=== PATIENT | female | born 1960 | race Caucasian/White ===

== ENCOUNTER 2016-05-14 12:49 | Emergency (ER) | payer MEDICARE, SELFPAY ==
[2016-05-14 13:27] LABS: Bilirubin Negative (Negative); Blood, Urine Negative (Negative); Clarity Clear (Clear); Glucose, Urine (Dipstick) 100 mg/dL (Negative); Leukocyte Negative (Negative); Nitrite Negative (Negative); Protein, Urine (Dipstick) 30 mg/dL (Neg-Trace); pH, Urine 6.5 (5.0-9.0)
[2016-05-14 13:28] LABS: Specific Gravity, Urine 1.026 (1.002-1.036)
[2016-05-14 13:32] LABS: Bacteria/HPF Rare-Few HPF (None Seen); RBC/HPF None Seen HPF (0-3); WBC/HPF None Seen HPF (0-3); Yeast-All Forms Rare HPF (None Seen)
--- NOTE | 2016-05-14 14:16 | CT ---
CT ABDOMEN AND PELVIS WITHOUT IV CONTRAST: Date: 05-14-16 History: Back pain with nausea and vomiting. Bilateral flank pain. Comparison: CT abdomen/pelvis 07-19-14 FINDINGS: Post-surgical change related to cholecystectomy are again noted. There is decreased attenuation to the liver relative to the spleen suggesting diffuse fatty infiltration. There is linear atelectasis versus scarring at the left lung base. Lung bases are otherwise clear. The spleen, pancreas, bilateral adrenal glands, and kidneys demonstrate a grossly normal nonenhanced CT appearance. No renal or ureteral calculi are seen bilaterally and there is no evidence of hydronephrosis. Urina ry bladder is decompressed and not well evaluated. Vascular calcifications are again seen in the abdominal aorta and iliac arteries. There is suture m aterial adjacent to the cecal apex, probably related to prior appendectomy and also noted on the sammy or exam. Also again is evidence of prior hysterectomy. There is increased density material within the colon likely related to prior ingested material. There has been no interval change when compared to the prior exam. IMPRESSION: 1. No renal or ureteral calculi are seen bilaterally. There is no hydronephrosis. 2. Fatty infiltration of the liver. 3. Post-surgical changes related to cholecystectomy and hysterectomy. 4. Mild stranding in the subcutaneous soft tissues to the right and left of the umbilicus which may be related to recent injections. POS: PEE
[2016-05-14] MEDS ORDERED: HYDROcodone/Acetaminophen 10/325 mg Tablet ONE (14:34)
[2016-05-14] MEDS ORDERED: Cyclobenzaprine 10 MG TAB ONE (14:34)
--- NOTE | 2016-05-14 14:54 | ERRECORD ---
[facility] EMERGENCY RECORD HPI BACK (13:39 ABUS) CHIEF COMPLAINT: Patient presents for evaluation of pain, to the mid back. HISTORIAN: History provided by patient, 55 yr old F here with boaz CVA tenderness with some radiation down to the lateral aspects of the abdomen. Fever of 101 at home. No N/V. Never happened before. Denies dysuria or hx of renal stones. MECHANISM OF INJURY: No apparent mechanism of injury. LOCATION: Symptoms are localized to the back, left lumbar region, right lumbar region. QUALITY: Pain is dull in nature, described as aching. SEVERITY: Currently symptoms are moderate, Current severity of pain rated as 8/10. TIME COURSE: Gradual onset of symptoms, 2 days, First recent visit for this complaint, Symptoms are worsening. ASSOCIATED WITH: No associated abdominal pain, No associated bladder incontinence, No associated dysuria, Associated with fever, No associated inability to ambulate, No associated sciatica, No associated tingling. EXACERBATED BY: Patient's condition exacerbated by movement. RELIEVED BY: Patient's condition relieved by nothing. ROS (13:42 ABUS) CONSTITUTIONAL: Historian denies chills, reports fever. CARDIOVASCULAR: Negative cardiovascular review of systems, Historian denies chest pain, denies palpitations. RESPIRATORY: Negative respiratory review of systems, Historian denies cough, denies shortness of breath. GI: Negative gastrointestinal review of systems, Historian denies abdominal pain, denies constipation, denies diarrhea, denies nausea, denies vomiting. GENITOURINARY FEMALE: Negative genitourinary review of systems, Historian denies dysuria, denies frequency. MUSCULOSKELETAL: boaz CVA pain. SKIN: Negative skin review of systems, Historian denies rash, denies skin changes. NEUROLOGIC: Negative neurologic review of systems, Historian denies headache. HEMO/LYMPHATIC: Normal hematologic/lymphatic system review, Historian denies abnormal blood clotting. PAST MEDICAL HISTORY (FriMay 14, 2016 13:10 MDEB) MEDICAL HISTORY: Past medical history includes history of diabetes, Type II, on insulin, levimere, Past medical history includes gastrointestinal disease, coloits and ibs, Past medical history includes history of hypertension, which has been treated, lisinopril, Notes: hx: ibs and colitis, not on any medications. psoriasis, Past medical history includes history of hypertension. FEMALE SURGICAL HISTORY: left and right foot surgery, &a-1R&a+25V*p+0X*[id number]*c202B*c15G*c2P*p-0X&a-25V&a+1R Name: UlicesJaquelin : 1960 F55 MedRec: [id number] AcctNum: [id number] Prepared: Rvier May 14, 2016 14:54 by Interface Page 1 of 4 pMD [facility] EMERGENCY RECORD x1, desmoid tumor left lower quadrant removed x2, Surgical history of appendectomy, Surgical history of cholecystectomy, Surgical history of hysterectomy., colonoscopy verified 09-14-14. PSYCHIATRIC HISTORY: Psychiatric history includes, bipolar disorder, Previous psychiatric history: seroquel,wellbutron, Notes: bipolar. SOCIAL HISTORY: Patient denies alcohol use, Patient denies drug use, Patient currently uses tobacco, smokes cigarettes, daily, Patient has smoked for 30 years, Patient smokes 1/2 packs per day, has smoked for 45 years, Patient currently uses tobacco, Patient smokes cigarettes. KNOWN ALLERGIES erythromycin base (Unconfirmed) erythromycin Oral: Reaction: Hives lithium aspartate (Unconfirmed) lithium carbonate metFORMIN: Reaction: Hives CURRENT MEDICATIONS No recorded medications VITAL SIGNS (13:07 MDEB) VITAL SIGNS: BP: 143/79, Pulse: 78, Resp: 20, Temp: 98.3 (Tympanic), Pain: 8, O2 sat: 96 on Room Air, Time: 05/14/2016 13:07. PHYSICAL EXAM (13:42 ABUS) CONSTITUTIONAL: Vital Signs Reviewed, Patient afebrile, Pulse normal, Blood pressure normal, Respiratory rate normal, Patient appears non toxic, Patient appears, in moderate pain distress, Patient alert and oriented to person, place and time. NECK: Neck exam normal, Neck exam included findings of normal range of motion, Trachea midline, no meningeal signs, no cervical adenopathy, no tenderness. RESPIRATORY CHEST: Respiratory and chest exam normal, Respiratory exam included findings of no respiratory distress, Breath sounds clear. CARDIOVASCULAR: Cardiovascular assessment normal, Cardiovascular exam included findings of heart rate regular rate and rhythm, Heart sounds normal. ABDOMEN FEMALE: Abdominal exam included findings of abdomen nontender, Bowel sounds normal, no distension, no mass, no pulsatile masses, no peritoneal signs, no rigidity, no guarding, no rebound, Rovsing's sign absent. BACK: Costovertebral angle tenderness, bilaterally, Back exam normal, Back exam included findings of normal inspection, range of motion normal. NEURO: Neuro exam normal, Neuro exam findings include patient oriented to person, place and time, Speech normal, Gait normal. SKIN: Skin exam normal, Skin exam included findings of skin warm, &a-1R&a+25V*p+0X*[id number]*c202B*c15G*c2P*p-0X&a-25V&a+1R Name: UlicesJaquelin : 1960 F55 MedRec: [id number] AcctNum: [id number] Prepared: kvng May 14, 2016 14:54 by Interface Page 2 of 4 pMD [facility] EMERGENCY RECORD dry, and normal in color, no rash. MEDICATION ADMINISTRATION SUMMARY Drug Name: HYDROcodone-acetaminophen, Dose Ordered: 10/325 tab(s), Route: Oral, Status: Given, Time: 14:39 05/14/2016, Drug Name: Flexeril, Dose Ordered: 10 mg, Route: Oral, Status: Given, Time: 14:38 05/14/2016, Detailed record available in Medication Service section. DOCTOR NOTES (13:43 ABUS) TEXT: 55 yr old F here with boaz CVA tenderness with some radiation down to the lateral aspects of the abdomen. Fever of 101 at home. No N/V. DDX: Cystitis, Urinary Tract Infection, Pyleonephritis, Nephrolithiasis, Urethritis, Dermatitis, Allergic Reaction PLAN: UA, Analgesics, CT Renal Stone Protocol DISPO: Pending results and response to treatment UPDATE/REASSESSMENT: Negative CT Renal stone, UA nonspecific Final Dispo: Discharge Home with regular follow up and return precautions. All results of testing and evaluation were shared with the patient who verbalized understanding and agreement with the plan of care. Level of Complexity / Medical Decision Making: Low Moderate High. PROBLEM LIST No recorded problems DIAGNOSIS (14:28 ABUS) FINAL: PRIMARY: Back Pain. PRESCRIPTION (14:27 ABUS) Flexeril: TABLET : 5 mg : ORAL : Quantity: 1 Unit: tab(s) Route: ORAL Schedule: every 8 hours PRN Dispense: 6 Unit: tab(s) May substitute. Refills: No Refills . NOTES: No Refills. acetaminophen-codeine: TABLET : 300 mg-30 mg : ORAL : Quantity: 1 Unit: tab(s) Route: ORAL Schedule: every 6 hours PRN Dispense: 8 Unit: tab(s) May substitute. Refills: No Refills . NOTES: ^s=No Refills No Refills. DISPOSITION PATIENT: Disposition Type: Discharge, Disposition: *Discharge Home, Condition: Good. (14:28 ABUS) Patient left the department. (14:48 MDEB) Davis: &a-1R&a+25V*p+0X*[id number]*c202B*c15G*c2P*p-0X&a-25V&a+1R Name: Jaquelin Elena : 1960 F55 MedRec: [id number] AcctNum: [id number] Prepared: River May 14, 2016 14:54 by Interface Page 3 of 4 pMD [facility] EMERGENCY RECORD ABUS=MD Mario, Odilon MCKEONEB=ZACH Waldrop, Amalia &a-1R&a+25V*p+0X*[id number]*c202B*c15G*c2P*p-0X&a-25V&a+1R Name: Jaquelin Elena : 1960 F55 MedRec: [id number] AcctNum: [id number] Prepared: River May 14, 2016 14:54 by Interface Page 4 of 4 pMD MTDD
--- NOTE | 2016-05-14 14:59 | PICIS ---
[facility] EMERGENCY RECORD TRIAGE (FriMay 14, 2016 13:10 MDEB) PATIENT: NAME: UlicesJaquelin, AGE: 55, GENDER: female, : Fri1960, TIME OF GREET: FriMay 14, 2016 12:49, PREFERRED LANGUAGE: Slovenian, RACE: WHITE, ETHNICITY: Not or , FALL RISK: NO, ECODE BILLING MAP: [facility], SSN: [id number], Zip Code: [address], KG WEIGHT: 84.82, PHONE: , , , PERSON ID: [id number], PCP: Chip BARTON. (FriMay 14, 2016 13:10 MDEB) TRIAGE NOTES: N/V SINCE FRIDAY - UNABLE TO KEEP ANYTHING DOWN - IDDM. (FriMay 14, 2016 13:10 MDEB) COMPLAINT: BACK PAIN,VOMITING. (FriMay 14, 2016 13:10 MDEB) ADMISSION: URGENCY: 3 Urgent, ADMISSION SOURCE: Home, TRANSPORT: Walk-in, BED: TRIAGE. (FriMay 14, 2016 13:10 MDEB) PAIN: Patient complains of pain described as, aching, on a scale 0-10 patient rates pain as 8, Location NIRU FLANK PAIN. (FriMay 14, 2016 13:10 MDEB) IMMUNIZATIONS: Tetanus immunization up to date. (FriMay 14, 2016 13:10 MDEB) TRIAGE SCREENING: Patient denies suicidal ideation, Patient denies presence of domestic violence. (FriMay 14, 2016 13:10 MDEB) LMP: LMP: Hysterectomy. (FriMay 14, 2016 13:10 MDEB) PROVIDERS: TRIAGE NURSE: Amalia Waldrop RN. (FriMay 14, 2016 13:10 MDEB) VITAL SIGNS: BP 143/79, Pulse 78, Resp 20, Temp 98.3, (Tympanic), Pain 8, O2 Sat 96, on Room Air, Time 05/14/2016 13:07. (13:07 MDEB) PREVIOUS VISIT ALLERGIES: erythromycin base, lithium aspartate, metformin. (FriMay 14, 2016 13:10 MDEB) KNOWN ALLERGIES erythromycin base (Unconfirmed) erythromycin Oral: Reaction: Hives lithium aspartate (Unconfirmed) lithium carbonate metFORMIN: Reaction: Hives CURRENT MEDICATIONS No recorded medications VITAL SIGNS (13:07 MDEB) VITAL SIGNS: BP: 143/79, Pulse: 78, Resp: 20, Temp: 98.3 (Tympanic), Pain: 8, O2 sat: 96 on Room Air, Time: 05/14/2016 13:07. NURSING ASSESSMENT: ABDOMEN (13:10 MDEB) CONSTITUTIONAL: Patient arrives ambulatory, Gait steady, History obtained from patient, Patient appears, anxious, uncomfortable, Patient cooperative, Patient alert, Oriented to person, place and time, Skin warm, Skin dry, Skin normal in color, Mucous membranes pink, Mucous membranes moist, Patient is well-groomed, Patient complains of N/V, IDDM PT REPORTS N/V SINCE . &a-1R&a+25V*p+0X*q6938S*c202B*c15G*c2P*p-0X&a-25V&a+1R Name: Jaquelin Elena : 1960 F55 MedRec: [id number] AcctNum: [id number] Prepared: River May 14, 2016 15:00 by Interface Page 1 of 7 pMD [facility] EMERGENCY RECORD PAIN: aching pain, to the left flank, to the right flank, on a scale 0-10 patient rates pain as 8, Pain exacerbated by nothing, Nothing has been tried to alleviate the pain. ABDOMEN: Abdomen assessment findings include abdomen symmetrical, Abdomen soft, Associated with nausea, Associated with vomiting, history of vomiting, vomiting clear fluid. GENITOURINARY FEMALE: Notes: DEFERRED AT THIS TIME. NOTES: Emotional support needed and given, Patient tolerated procedure well. SAFETY: Side rails up, Cart/Stretcher in lowest position, Family at bedside, Call light within reach, Hospital ID band on. NURSING PROCEDURE: BEDSIDE TESTING (13:15 MDEB) PATIENT IDENTIFIER: Patient actively involved in identification process, Patient's identity verified by patient stating name, Patient's identity verified by hospital ID bracelet. GLUCOSE: Glucose testing indicated for diabetic patient, Capillary blood sample, Result (mg/dl) 172. FOLLOW-UP: After procedure, results given to Dr. CHRISTIANSEN. SAFETY: Cart/Stretcher in lowest position, Call light within reach, Hospital ID band on. NURSING PROCEDURE: DISCHARGE NOTE (14:42 MAGALIE) DISCHARGE: Patient discharged to home, ambulating without assistance, family driving, accompanied by other family member, Summary of Care printed/ provided, Patient requested and was provided an electronic copy of Discharge Instructions, Transition record given to patient, Discharge instructions given to patient, Simple or moderate discharge teaching performed, MEDICATIONS, DIET, Prescriptions given and instructions on side effects given, Above person(s) verbalized understanding of discharge instructions and follow-up care, Patient treated and evaluated by physician. BELONGINGS: Belongings remain with patient, Valuables remain with patient. NOTES: Emotional support needed and given, Patient tolerated procedure well. ORDER DETAILS Order Name: CT Stone Protocol, Status: Active, Time: 13:28 05/14/2016, User: MARTÍN, - Ordered for: MD Christiansen Anthony, - Entered by: MD Christiansen Anthony - River May 14, 2016 13:28, - Quantity: 1, Order Name: Urinalysis with Microscopic, Status: Active, Time: 13:18 05/14/2016, User: MAGALIE, - Ordered for: MD Christiansen Anthony, - Entered by: ZACH Waldrop, Amalia - River May 14, 2016 13:18, &a-1R&a+25V*p+0X*b7759L*c202B*c15G*c2P*p-0X&a-25V&a+1R Name: Jaquelin Elena : 1960 F55 MedRec: [id number] AcctNum: [id number] Prepared: FriMay 14, 2016 15:00 by Interface Page 2 of 7 pMD [facility] EMERGENCY RECORD - Quantity: 1. MEDICATION ADMINISTRATION SUMMARY Drug Name: HYDROcodone-acetaminophen, Dose Ordered: 10/325 tab(s), Route: Oral, Status: Given, Time: 14:39 05/14/2016, Drug Name: Flexeril, Dose Ordered: 10 mg, Route: Oral, Status: Given, Time: 14:38 05/14/2016, Detailed record available in Medication Service section. MEDICATION SERVICE Flexeril: Order: Flexeril (cyclobenzaprine HCl) - Dose: 10 mg : Oral Schedule: Now Ordered by: Odilon Christiansen MD Entered by: MD River Marquez May 14, 2016 14:26 , Acknowledged by: Sagrario Manning RN May 14, 2016 14:34 Documented as given by: Sagrario Manning RN May 14, 2016 14:38 Patient, Medication, Dose, Route and Time verified prior to administration. Amount given: 10MG, Site: Medication administered P.O., Correct patient, time, route, dose and medication confirmed prior to administration, Patient advised of actions and side-effects prior to administration, Allergies confirmed and medications reviewed prior to administration, Patient in position of comfort, Side rails up, Cart in lowest position, Family at bedside. HYDROcodone-acetaminophen: Order: HYDROcodone-acetaminophen (hydrocodone bitartrate/acetaminophen) - Dose: 10/325 tab(s) : Oral Ordered by: Odilon Christiansen MD Entered by: Odilon Christiansen MD FriMay 14, 2016 14:26 , Acknowledged by: Sagrario Manning RN May 14, 2016 14:34 Documented as given by: Sagrario Manning RN May 14, 2016 14:39 Patient, Medication, Dose, Route and Time verified prior to administration. Amount given: 1 TAB, Site: Medication administered P.O., Correct patient, time, route, dose and medication confirmed prior to administration, Patient advised of actions and side-effects prior to administration, Allergies confirmed and medications reviewed prior to administration, Patient in position of comfort, Side rails up, Cart in lowest position, Family at bedside. HPI BACK (13:39 ABUS) CHIEF COMPLAINT: Patient presents for evaluation of pain, to the mid back. HISTORIAN: History provided by patient, 55 yr old F here with niru CVA tenderness with some radiation down to the lateral aspects of the abdomen. Fever of 101 at home. No N/V. Never happened before. Denies dysuria or hx of renal stones. MECHANISM OF INJURY: No apparent mechanism of injury. LOCATION: Symptoms are &a-1R&a+25V*p+0X*z9284T*c202B*c15G*c2P*p-0X&a-25V&a+1R Name: Jaquelin Elena : 1960 F55 MedRec: [id number] AcctNum: [id number] Prepared: FriMay 14, 2016 15:00 by Interface Page 3 of 7 pMD [facility] EMERGENCY RECORD localized to the back, left lumbar region, right lumbar region. QUALITY: Pain is dull in nature, described as aching. SEVERITY: Currently symptoms are moderate, Current severity of pain rated as 8/10. TIME COURSE: Gradual onset of symptoms, 2 days, First recent visit for this complaint, Symptoms are worsening. ASSOCIATED WITH: No associated abdominal pain, No associated bladder incontinence, No associated dysuria, Associated with fever, No associated inability to ambulate, No associated sciatica, No associated tingling. EXACERBATED BY: Patient's condition exacerbated by movement. RELIEVED BY: Patient's condition relieved by nothing. ROS (13:42 ABUS) CONSTITUTIONAL: Historian denies chills, reports fever. CARDIOVASCULAR: Negative cardiovascular review of systems, Historian denies chest pain, denies palpitations. RESPIRATORY: Negative respiratory review of systems, Historian denies cough, denies shortness of breath. GI: Negative gastrointestinal review of systems, Historian denies abdominal pain, denies constipation, denies diarrhea, denies nausea, denies vomiting. GENITOURINARY FEMALE: Negative genitourinary review of systems, Historian denies dysuria, denies frequency. MUSCULOSKELETAL: niru CVA pain. SKIN: Negative skin review of systems, Historian denies rash, denies skin changes. NEUROLOGIC: Negative neurologic review of systems, Historian denies headache. HEMO/LYMPHATIC: Normal hematologic/lymphatic system review, Historian denies abnormal blood clotting. PAST MEDICAL HISTORY (FriMay 14, 2016 13:10 MDEB) MEDICAL HISTORY: Past medical history includes history of diabetes, Type II, on insulin, levimere, Past medical history includes gastrointestinal disease, coloits and ibs, Past medical history includes history of hypertension, which has been treated, lisinopril, Notes: hx: ibs and colitis, not on any medications. psoriasis, Past medical history includes history of hypertension. FEMALE SURGICAL HISTORY: left and right foot surgery, x1, desmoid tumor left lower quadrant removed x2, Surgical history of appendectomy, Surgical history of cholecystectomy, Surgical history of hysterectomy., colonoscopy verified 5--15. PSYCHIATRIC HISTORY: Psychiatric history includes, bipolar disorder, Previous psychiatric history: seroquel,wellbutron, Notes: bipolar. SOCIAL HISTORY: Patient denies alcohol use, Patient denies drug use, Patient currently uses tobacco, smokes cigarettes, daily, &a-1R&a+25V*p+0X*c8613Y*c202B*c15G*c2P*p-0X&a-25V&a+1R Name: Ulices, Kelly : 1960 F55 MedRec: [id number] AcctNum: [id number] Prepared: FriMay 14, 2016 15:00 by Interface Page 4 of 7 pMD [facility] EMERGENCY RECORD Patient has smoked for 30 years, Patient smokes 1/2 packs per day, has smoked for 45 years, Patient currently uses tobacco, Patient smokes cigarettes. PHYSICAL EXAM (13:42 ABUS) CONSTITUTIONAL: Vital Signs Reviewed, Patient afebrile, Pulse normal, Blood pressure normal, Respiratory rate normal, Patient appears non toxic, Patient appears, in moderate pain distress, Patient alert and oriented to person, place and time. NECK: Neck exam normal, Neck exam included findings of normal range of motion, Trachea midline, no meningeal signs, no cervical adenopathy, no tenderness. RESPIRATORY CHEST: Respiratory and chest exam normal, Respiratory exam included findings of no respiratory distress, Breath sounds clear. CARDIOVASCULAR: Cardiovascular assessment normal, Cardiovascular exam included findings of heart rate regular rate and rhythm, Heart sounds normal. ABDOMEN FEMALE: Abdominal exam included findings of abdomen nontender, Bowel sounds normal, no distension, no mass, no pulsatile masses, no peritoneal signs, no rigidity, no guarding, no rebound, Rovsing's sign absent. BACK: Costovertebral angle tenderness, bilaterally, Back exam normal, Back exam included findings of normal inspection, range of motion normal. NEURO: Neuro exam normal, Neuro exam findings include patient oriented to person, place and time, Speech normal, Gait normal. SKIN: Skin exam normal, Skin exam included findings of skin warm, dry, and normal in color, no rash. EVENTS TRANSFER: Triage to Emergency Triage. (FriMay 14, 2016 13:10 MDEB) Emergency Triage to Main ED -03. (13:18 MDEB) Removed from Emergency Main ED -03. (14:48 MDEB) DOCTOR NOTES (13:43 ABUS) TEXT: 55 yr old F here with niru CVA tenderness with some radiation down to the lateral aspects of the abdomen. Fever of 101 at home. No N/V. DDX: Cystitis, Urinary Tract Infection, Pyleonephritis, Nephrolithiasis, Urethritis, Dermatitis, Allergic Reaction PLAN: UA, Analgesics, CT Renal Stone Protocol DISPO: Pending results and response to treatment UPDATE/REASSESSMENT: Negative CT Renal stone, UA nonspecific Final Dispo: Discharge Home with regular follow up and return precautions. All results of testing and evaluation were shared with the patient who verbalized understanding and agreement with the plan of care. Level of Complexity / Medical Decision Making: Low Moderate &a-1R&a+25V*p+0X*p2537Z*c202B*c15G*c2P*p-0X&a-25V&a+1R Name: UlicesJaquelin : 1960 F55 MedRec: [id number] AcctNum: [id number] Prepared: FriMay 14, 2016 15:00 by Interface Page 5 of 7 pMD [facility] EMERGENCY RECORD High. PROBLEM LIST No recorded problems DIAGNOSIS (14:28 ABUS) FINAL: PRIMARY: Back Pain. DISPOSITION PATIENT: Disposition Type: Discharge, Disposition: *Discharge Home, Condition: Good. (14:28 ABUS) Patient left the department. (14:48 MDEB) INSTRUCTION (14:29 ABUS) DISCHARGE: LOW BACK PAIN GENERAL. FOLLOWUP: [facility], /[facility], [address] [place] [address], , Follow up with Primary Care Physician in 3-4 days. SPECIAL: Please keep any upcoming appointments with your primary doctor or call the referral provided to you today to establish a follow up evaluation or ongoing medical care. Please come back if you start to have fever, vomiting, changes in bowel or bladder function or any symptoms that concern you. PRESCRIPTION (14:27 ABUS) Flexeril: TABLET : 5 mg : ORAL : Quantity: 1 Unit: tab(s) Route: ORAL Schedule: every 8 hours PRN Dispense: 6 Unit: tab(s) May substitute. Refills: No Refills . NOTES: No Refills. acetaminophen-codeine: TABLET : 300 mg-30 mg : ORAL : Quantity: 1 Unit: tab(s) Route: ORAL Schedule: every 6 hours PRN Dispense: 8 Unit: tab(s) May substitute. Refills: No Refills . NOTES: ^s=No Refills No Refills. IMAGING *DISCHARGE INSTRUCTIONS RECEIPT: Image captured from scanner. (14:45 MDEB) *SUPPLY CHARGE SHEET: Image captured from scanner. (14:46 MDEB) ADMIN (14:40 ABUS) DIGITAL SIGNATURE: MD Mario, Odilon. RESULTS (13:45 MDEB) LABORATORY: Urinalysis with Microscopic Collection DT: FriMay 14, 2016 13:25, Color Yellow , Range (Yellow), Clarity Clear , Range (Clear), &a-1R&a+25V*p+0X*k3571L*c202B*c15G*c2P*p-0X&a-25V&a+1R Name: UlicesJaquelin : 1960 F55 MedRec: [id number] AcctNum: [id number] Prepared: FriMay 14, 2016 15:00 by Interface Page 6 of 7 pMD [facility] EMERGENCY RECORD Specific [place], Urine 1.026 , Range (1.002-1.036), pH, Urine 6.5 , Range (5.0-9.0), Leukocyte Negative , Range (Negative), Nitrite Negative , Range (Negative), *Protein, Urine (Dipstick) 30 - H mg/dL, Range (Neg-Trace), *Glucose, Urine (Dipstick) 100 - H mg/dL, Range (Negative), Ketone, Urine Negative mg/dL, Range (Negative), Urobilinogen 1.0 mg/dL, Range (0.2-1.0), Bilirubin Negative , Range (Negative), Blood, Urine Negative , Range (Negative), RBC/HPF None Seen HPF, Range (0-3), WBC/HPF None Seen HPF, Range (0-3), *Squamous Epithelial 11-20 - H HPF, Range (0-3), Bacteria/HPF Rare-Few HPF, Range (None Seen), Yeast-All Forms Rare HPF, Range (None Seen). Accuchek Collection DT: FriMay 14, 2016 13:22, *Accuchek 172 - H mg/dL, Range (70-110). Davis: MARTÍN=MD Mario, Odilon MCKEONEB=ZACH Waldrop, Amalia &a-1R&a+25V*p+0X*h1635D*c202B*c15G*c2P*p-0X&a-25V&a+1R Name: Jaquelin Elena : 1960 F55 MedRec: [id number] AcctNum: [id number] Prepared: River May 14, 2016 15:00 by Interface Page 7 of 7 pMD MTDD
== END 2016-05-14 14:42 | disposition home or self-care (01) ==
LOC: MADERS 12:49
DX: M54.6 Pain in thoracic spine (principal); I10 Essential (primary) hypertension; E11.9 Type 2 diabetes mellitus without complications; F31.9 Bipolar disorder, unspecified; F17.210 Nicotine dependence, cigarettes, uncomplicated; Z90.49 Acquired absence of other specified parts of digestive tract; Z90.710 Acquired absence of both cervix and uterus
CPT/HCPCS: 36416; 74176; 81001

== ENCOUNTER 2017-01-01 11:13 | Emergency (ER) | payer MEDICARE, SELFPAY ==
[~2017-01-01 11:13] MED LIST: Iopamidol 370 76% 100 ML VIAL ONE; Sodium Chloride 0.9% 1,000 ML BAG ONE
[2017-01-01] MEDS ORDERED: Ondansetron HCl/PF 4 MG/2 ML Vial ONE (11:59)
[2017-01-01 12:04] LABS: #Basophils 0.1 thou/uL (0.0-0.2); #Eosinphils 0.1 thou/uL (0.0-0.7); #Lymphocytes 2.1 thou/uL (1.20-3.40); #Monocytes 0.4 thou/uL (0.11-0.59); #Neutrophils 4.6 thou/uL (1.40-6.50); %Basophils 1.5 % (0.0-1.0); %Eosinophils 1.2 % (0.0-10.0); %Neutrophils 63.3 % (42.0-75.0); Hemoglobin 15.4 g/dL (12.0-16.0); Mean Corpuscular HGB CONC 32.6 g/dL (32.0-36.0); Mean Corpuscular Hemoglobin 28.7 pg (27.0-31.0); Mean Corpuscular Volume 88.1 fl (81.0-99.0); Mean Platelet Volume 6.6 fL (7.4-10.4); Platelet Count 222 thou/uL (130-400); RBC Distribution Width 12.8 % (11.5-14.5); Red Blood Cell (RBC) Count 5.36 mill/uL (4.20-5.40); White Blood Cell (WBC) Count 7.3 thou/uL (4.8-10.8)
[2017-01-01 12:13] LABS: Bacteria/HPF 1+ HPF (None Seen); Bilirubin Negative (Negative); Blood, Urine Negative (Negative); Clarity Slightly Cloudy (Clear); Glucose, Urine (Dipstick) Negative (Negative); Icto Negative (Negative); Leukocyte Negative (Negative); Nitrite Negative (Negative); Protein, Urine (Dipstick) 30 mg/dL (Neg-Trace); RBC/HPF 0-3 HPF (0-3); Specific Gravity, Urine 1.025 (1.005-1.030); Urobilinogen 0.2 mg/dL (0.2-1.0); WBC/HPF 0-3 HPF (0-3); pH, Urine 5.5 (5.0-9.0)
[2017-01-01 12:14] LABS: Yeast-All Forms 2+ HPF (None Seen)
[2017-01-01 12:19] LABS: ALT (SGPT) 42 U/L (8-55); AST (SGOT) 53 U/L (5-34); Albumin 4.8 g/dL (3.5-5.0); Alkaline Phosphatase 109 U/L (40-150); Anion Gap 18 mmol/L (10-20); BUN (Urea Nitrogen) 16 mg/dL (9.8-20.1); Bilirubin, Total 0.5 mg/dL (0.2-1.2); Calc. Creatinine Clearance 0 mL/min (70-130); Calcium 10.4 mg/dL (7.8-10.44); Carbon Dioxide 25 mmol/L (22-29); Chloride 100 mmol/L (98-107); Estimated GFR-MDRD 60; Globulin 3.2 g/dL (2.4-3.5); Glucose 165 mg/dL (70-105); Lipase 12 U/L (8-78); Potassium 3.9 mmol/L (3.5-5.1); Sodium 139 mmol/L (136-145)
--- NOTE | 2017-01-01 13:20 | CT ---
CONTRAST ENHANCED ABDOMEN AND PELVIS CT: Date: 01/01/17 COMPARISON: 10/19/13. INDICATION: Abdominal pain. FINDINGS: Evidence of prior cholecystectomy. Low attenuation of the hepatic parenchyma may be on the basis of phase of enhancement versus hepatic steatosis. No adrenal mass. No peripancreatic inflammation or fo tali splenic lesion. Redemonstration of multifocal altered density of each kidney, many of which are too small to further characterize. There has been progression of volume of a mixed density cystic an d solid appearing lesion at the lateral confines of the superior pole left kidney, partially exophyt ic. The bowel is not reliably evaluated without enteric contrast. There are phleboliths and metallic clips of the pelvis. Scattered vascular disease is present. No free air. No evidence of acute osseo us abnormality. Stable bone island at the posterior aspect of the left ischium. IMPRESSION: 1. Size progression of a cystic and solid appearing mass of the lateral aspect of the superior pole of the left kidney, incompletely evaluated on the basis of this single phase postcontrast exam. Rec ommend dedicated renal mass CT of abdomen as follow-up to evaluate enhancement characteristics, as t he diagnosis of exclusion is renal cell carcinoma. Also recommend urology consultation. 2. Numerous additional bilateral renal hypodensities remain. Findings called to ER physician, Thomas Gutierrez, for recommendations of follow-up of renal mass at 12 50 hours on 01/01/17. CODE CR. POS: [facility]
== END 2017-01-01 13:30 | disposition home or self-care (01) ==
LOC: MADERS 11:13
DX: K52.9 Noninfective gastroenteritis and colitis, unspecified (principal); E11.9 Type 2 diabetes mellitus without complications; I10 Essential (primary) hypertension; K58.9 Irritable bowel syndrome, unspecified; F31.9 Bipolar disorder, unspecified; F17.210 Nicotine dependence, cigarettes, uncomplicated; Z79.899 Other long term (current) drug therapy; Z79.4 Long term (current) use of insulin
CPT/HCPCS: 36416; 74177; 80053; 81003; 81015; 83690; 85025; 96361; 96374; 96375; J2270; J2405; J7050

== ENCOUNTER 2017-01-04 15:14 | Emergency (ER) | payer MEDICARE ==
[2017-01-04] MEDS ORDERED: Ondansetron HCl/PF 4 MG/2 ML Vial ONE (15:38)
[2017-01-04] MEDS ORDERED: Ketorolac Tromethamine 30 MG/ML VIAL ONE (15:38)
[2017-01-04] MEDS ORDERED: Sodium Chloride 0.9% 1,000 ML BAG ONE (16:03)
--- NOTE | 2017-01-04 16:05 | CT ---
CT ABDOMEN AND PELVIS NONCONTRAST 01/04/17 COMPARISON: 05/14/16, 01/01/17. CLINICAL HISTORY: Abdominal pain. FINDINGS: There is no evidence of obstructive uropathy. There are minute foci of increased density of each kid regina which may be on the basis of punctate nonobstructing nephrolithiasis. Evidence of prior cholecy stectomy. No ascites or free air. The regional soft tissues including solid abdominal viscera, bowel , lymph nodes, and vasculature are limited without the presence of IV or enteric contrast. There are a few colonic diverticula. Osseous degenerative change. IMPRESSION: Possible punctate nephrolithiasis bilaterally, although no evidence of obstructive uropathy. The previously mentioned progressive size of mixed density partially exophytic left renal lesion is incompletely evaluated on the basis of this noncontrast exam. Please reference the recent report sergio robison 01/01/17 for details regarding findings and recommendations. POS: [facility]
[2017-01-04 16:06] LABS: #Basophils 0.1 thou/uL (0.0-0.2); #Eosinphils 0.1 thou/uL (0.0-0.7); #Lymphocytes 1.8 thou/uL (1.20-3.40); #Monocytes 0.3 thou/uL (0.11-0.59); #Neutrophils 2.8 thou/uL (1.40-6.50); %Basophils 1.5 % (0.0-1.0); %Eosinophils 1.2 % (0.0-10.0); %Lymphocytes 36.2 % (21.0-51.0); %Monocytes 5.4 % (0.0-10.0); %Neutrophils 55.7 % (42.0-75.0); Hemoglobin 14.2 g/dL (12.0-16.0); Mean Corpuscular Hemoglobin 29.6 pg (27.0-31.0); Mean Platelet Volume 6.2 fL (7.4-10.4); Platelet Count 195 thou/uL (130-400); RBC Distribution Width 12.2 % (11.5-14.5); Red Blood Cell (RBC) Count 4.81 mill/uL (4.20-5.40); White Blood Cell (WBC) Count 5.1 thou/uL (4.8-10.8)
[2017-01-04 16:09] LABS: Clarity Hazy (Clear); Leukocyte Negative (Negative); Nitrite Negative (Negative); Protein, Urine (Dipstick) Trace mg/dL (Neg-Trace); Specific Gravity, Urine 1.028 (1.002-1.036); pH, Urine 5.5 (5.0-9.0)
[2017-01-04 16:10] LABS: Bilirubin Negative (Negative); Blood, Urine Negative (Negative); Glucose, Urine (Dipstick) 100 mg/dL (Negative); Icto Negative (Negative); Urobilinogen 0.2 mg/dL (0.2-1.0)
[2017-01-04 16:20] LABS: ALT (SGPT) 29 U/L (8-55); AST (SGOT) 25 U/L (5-34); Albumin 4.4 g/dL (3.5-5.0); Alkaline Phosphatase 93 U/L (40-150); Anion Gap 15 mmol/L (10-20); BUN (Urea Nitrogen) 17 mg/dL (9.8-20.1); Bilirubin, Total 0.3 mg/dL (0.2-1.2); Calc. Creatinine Clearance 0 mL/min (70-130); Calcium 9.7 mg/dL (7.8-10.44); Carbon Dioxide 25 mmol/L (22-29); Chloride 103 mmol/L (98-107); Estimated GFR-MDRD 68; Globulin 3.1 g/dL (2.4-3.5); Glucose 143 mg/dL (70-105); Potassium 3.3 mmol/L (3.5-5.1); Protein, Total 7.5 g/dL (6.0-8.3); Sodium 140 mmol/L (136-145)
[2017-01-04] MEDS ORDERED: Potassium Chloride 20 MEQ TAB ONE (16:38)
== END 2017-01-04 17:10 | disposition home or self-care (01) ==
LOC: MADERS 15:14
DX: N23 Unspecified renal colic (principal); E11.9 Type 2 diabetes mellitus without complications; I10 Essential (primary) hypertension; F31.9 Bipolar disorder, unspecified; F17.210 Nicotine dependence, cigarettes, uncomplicated; Z79.84 Long term (current) use of oral hypoglycemic drugs; Z79.4 Long term (current) use of insulin; Z79.899 Other long term (current) drug therapy
CPT/HCPCS: 74176; 80053; 81003; 85025; 96361; 96374; 96375; J1885; J2270; J2405; J7050

== ENCOUNTER 2017-02-16 12:37 | Emergency (ER) | payer MEDICARE ==
[~2017-02-16 12:37] MED LIST changes: -Iopamidol 370 76% 100 ML VIAL ONE
[2017-02-16 13:09] LABS: Bilirubin Negative (Negative); Blood, Urine Negative (Negative); Clarity Clear (Clear); Glucose, Urine (Dipstick) Negative (Negative); Leukocyte Negative (Negative); Nitrite Negative (Negative); Protein, Urine (Dipstick) Negative (Neg-Trace)
[2017-02-16] MEDS ORDERED: diphenhydrAMINE HCl 50 MG/ML 1 ML VIAL ONE (13:13)
[2017-02-16] MEDS ORDERED: Metoclopramide HCl 10 MG/2 ML VIAL ONE (13:18)
--- NOTE | 2017-02-16 13:44 | CT ---
CT HEAD NONCONTRAST: History Headache. FINDINGS: No comparison. There is no evidence of acute intracranial hemorrhage or infarct. The ventricles ap pear normal in size, shape, and position. There is no mass effect or shift of midline structures. IMPRESSION: No acute intracranial abnormalities are demonstrated on noncontrast CT head. POS: [facility]
[2017-02-16] MEDS ORDERED: Ketorolac Tromethamine 30 MG/ML VIAL ONE (13:57)
[2017-02-16] MEDS ORDERED: Acetaminophen 500 MG TAB ONE (13:57)
== END 2017-02-16 14:15 | disposition home or self-care (01) ==
LOC: MADERS 12:37
DX: G43.909 Migraine, unspecified, not intractable, without status migrainosus (principal); E11.9 Type 2 diabetes mellitus without complications; Z79.4 Long term (current) use of insulin; F31.9 Bipolar disorder, unspecified; F17.210 Nicotine dependence, cigarettes, uncomplicated; Z79.891 Long term (current) use of opiate analgesic; Z79.899 Other long term (current) drug therapy
CPT/HCPCS: 70450; 81003; 96361; 96372; 96374; 96375; J1200; J1885; J2765; J7050

== ENCOUNTER 2017-08-04 14:52 | Emergency (ER) | payer MEDICARE ==
[~2017-08-04 14:52] MED LIST changes: +Iopamidol 370 76% 100 ML VIAL ONE; +Sodium Chloride 0.9% 100 ML BAG ONE
[2017-08-04 16:10] LABS: Bilirubin Negative (Negative); Blood, Urine Negative (Negative); Clarity Hazy (Clear); Glucose, Urine (Dipstick) Negative (Negative); Leukocyte Negative (Negative); Nitrite Negative (Negative); Protein, Urine (Dipstick) Negative (Neg-Trace); Specific Gravity, Urine 1.025 (1.005-1.030); Urobilinogen 0.2 mg/dL (0.2-1.0)
[2017-08-04] MEDS ORDERED: Pantoprazole 40 MG VIAL ONE (16:15)
[2017-08-04] MEDS ORDERED: Ondansetron HCl/PF 4 MG/2 ML Vial ONE (16:15)
[2017-08-04] MEDS ORDERED: MORPHINE 10 MG/ML SYRINGE ONE (16:15)
[2017-08-04 16:37] LABS: CKMB 0.5 ng/mL (0-6.6); Troponin I Less than 0.010 ng/mL (< 0.028)
[2017-08-04 16:39] LABS: Eosinophils 1 % (0-10); Hemoglobin 14.5 g/dL (12.0-16.0); Lymphocytes 36 % (21-51); MDiff Complete? YES; Mean Corpuscular HGB CONC 33.1 g/dL (32.0-36.0); Mean Corpuscular Hemoglobin 28.2 pg (27.0-31.0); Mean Corpuscular Volume 85.3 fl (81.0-99.0); Mean Platelet Volume 6.4 fL (7.4-10.4); Monocytes 6 % (0-10); Neutrophil 57 % (42-75); PLT Morphology Comment Appears Adequate; Platelet Count 248 thou/uL (130-400); RBC Distribution Width 12.6 % (11.5-14.5); Red Blood Cell (RBC) Count 5.13 mill/uL (4.20-5.40); White Blood Cell (WBC) Count 5.4 thou/uL (4.8-10.8)
[2017-08-04 17:12] LABS: ALT (SGPT) 31 U/L (8-55); AST (SGOT) 26 U/L (5-34); Albumin 4.5 g/dL (3.5-5.0); Alkaline Phosphatase 99 U/L (40-150); Anion Gap 18 mmol/L (10-20); BUN (Urea Nitrogen) 24 mg/dL (9.8-20.1); Bilirubin, Total 0.3 mg/dL (0.2-1.2); Calc. Creatinine Clearance 0 mL/min (70-130); Calcium 9.7 mg/dL (7.8-10.44); Carbon Dioxide 23 mmol/L (22-29); Chloride 101 mmol/L (98-107); Estimated GFR-MDRD 70; Globulin 3.1 g/dL (2.4-3.5); Glucose 182 mg/dL (70-105); Lipase 22 U/L (8-78); Potassium 3.4 mmol/L (3.5-5.1); Protein, Total 7.6 g/dL (6.0-8.3); Sodium 139 mmol/L (136-145)
[2017-08-04] MEDS ORDERED: Promethazine HCl 25 MG/ML VIAL ONE (17:58)
[2017-08-04] MEDS ORDERED: Morphine 10 MG/ML VIAL ONE (19:17)
[2017-08-04 20:47] LABS: Lactic Acid 1.6 mmol/L (0.5-2.2)
--- NOTE | 2017-08-04 21:22 | CT ---
CT OF THE ABDOMEN AND PELVIS WITH CONTRAST: Date: 08-04-17 History: Left renal cell carcinoma which was removed about 8 weeks ago. Abdominal pain. Technique: Multiple contiguous axial images were obtained in a CT of the abdomen and pelvis with cont rast. PO contrast was administered. Coronal reformats were performed. FINDINGS: This patient is status post cholecystectomy and hysterectomy. There is fluid density adjacent to the outer aspect of the left kidney in the region where the enhancing lesion was seen on prior CT. This f luid collection measures 3.6 cm in greatest dimension. There is a stable hyperdensity in the right kidney which likely represents a small cyst. No residual suspicious enhancing mass is seen. The liver, adrenal glands, spleen, and pancreas are unremarkable. No free air, free fluid, or strandi ng changes are seen in the abdomen or pelvis. The large and small bowel are unremarkable. The appendix is not seen as it has been removed. There are stranding changes in the abdominal wall which have not changed significantly compared to th e prior exam and may represent scarring. No abdominal or pelvic lymphadenopathy are seen. Atherosclerotic calcifications are seen in the aorta. Degenerative changes are seen in the spine. Vis ualized inferior thorax is unremarkable. IMPRESSION: 1. Post procedural changes in the left kidney. This may be secondary to prior partial nephrectomy or radial frequency ablation of the mass in the left kidney. 2. Right renal cyst. 3. No evidence of acute intraabdominal/pelvic abnormality. POS: [facility]
== END 2017-08-04 21:14 | disposition home or self-care (01) ==
LOC: MADERS 14:52
DX: K52.9 Noninfective gastroenteritis and colitis, unspecified (principal); E11.9 Type 2 diabetes mellitus without complications; I10 Essential (primary) hypertension; F31.9 Bipolar disorder, unspecified; F17.210 Nicotine dependence, cigarettes, uncomplicated; Z79.4 Long term (current) use of insulin
CPT/HCPCS: 36415; 74177; 80053; 81003; 82553; 83605; 83690; 84484; 85025; 93005; 96361; 96365; 96375; 96376; C9113; J2270; J2405; J2550; J7050

== ENCOUNTER 2018-09-03 18:12 | Emergency (ER) | payer MEDICARE | END 2018-09-03 18:46 | disposition home or self-care (01) | LOC: MADERS 18:12 | DX: H02.843 Edema of right eye, unspecified eyelid (principal); E11.9 Type 2 diabetes mellitus without complications; F31.9 Bipolar disorder, unspecified; Z87.891 Personal history of nicotine dependence; Z79.899 Other long term (current) drug therapy; Z79.4 Long term (current) use of insulin | CPT/HCPCS: 99281 ==

== ENCOUNTER 2019-04-20 16:09 | Emergency (ER) | payer MEDICARE | END 2019-04-20 16:55 | disposition home or self-care (01) | LOC: MADERS 16:09 | DX: Z76.0 Encounter for issue of repeat prescription (principal); F31.9 Bipolar disorder, unspecified; I10 Essential (primary) hypertension; E11.9 Type 2 diabetes mellitus without complications; E78.00 Pure hypercholesterolemia, unspecified; F17.200 Nicotine dependence, unspecified, uncomplicated; Z79.899 Other long term (current) drug therapy; Z79.4 Long term (current) use of insulin; Z71.6 Tobacco abuse counseling | CPT/HCPCS: 99406 ==

== ENCOUNTER 2019-10-10 10:33 | Emergency (ER) | payer MEDICARE, OTHER ==
[2019-10-10 11:22] LABS: Bilirubin Negative (Negative); Blood, Urine Negative (Negative); Glucose, Urine (Dipstick) Negative (Negative); Leukocyte Negative (Negative); Nitrite Negative (Negative); Protein, Urine (Dipstick) Negative (Neg-Trace); Urobilinogen 0.2 mg/dL (Less than 2)
[2019-10-10 11:23] LABS: Clarity Hazy (Clear)
[2019-10-10 11:25] LABS: Bacteria/HPF Rare-Few HPF (None Seen); RBC/HPF 0-3 HPF (0-3); WBC/HPF 0-3 HPF (0-3)
[2019-10-10] MEDS ORDERED: Ondansetron ODT 4 MG TAB ONE (12:02)
[2019-10-10 13:22] LABS: Band 2 % (5-11); Eosinophils 3 % (0-10); Hemoglobin 15.3 g/dL (12.0-16.0); Lymphocytes 33 % (21-51); MDiff Complete? YES; Mean Corpuscular HGB CONC 31.3 g/dL (32.0-36.0); Mean Corpuscular Volume 86.4 fL (78.0-98.0); Mean Platelet Volume 6.5 fL (7.4-10.4); Monocytes 5 % (0-10); Neutrophil 57 % (42-75); Platelet Count 304 thou/uL (130-400); Platelet Morphology Comment Appears Adequate; RBC Distribution Width 13.2 % (11.5-14.5); Red Blood Cell (RBC) Count 5.65 mill/uL (4.20-5.40); White Blood Cell (WBC) Count 8.3 thou/uL (4.8-10.8)
[2019-10-10 13:28] LABS: ALT (SGPT) 27 U/L (8-55); AST (SGOT) 27 U/L (5-34); Albumin 4.7 g/dL (3.5-5.0); Alkaline Phosphatase 113 U/L (40-110); Anion Gap 19 mmol/L (10-20); BUN (Urea Nitrogen) 28 mg/dL (9.8-20.1); Bilirubin, Total 0.3 mg/dL (0.2-1.2); Calc. Creatinine Clearance 0 mL/min (70-130); Calcium 10.3 mg/dL (7.8-10.44); Carbon Dioxide 24 mmol/L (22-29); Chloride 100 mmol/L (98-107); Estimated GFR-MDRD 50; Globulin 3.3 g/dL (2.4-3.5); Glucose 104 mg/dL (70-105); Lipase 15 U/L (8-78); Potassium 3.8 mmol/L (3.5-5.1); Sodium 139 mmol/L (136-145)
[2019-10-11 10:10] LABS: SARS-CoV-2 MS2 Positive; SARS-CoV-2 N Gene Negative; SARS-CoV-2 S Gene Negative; SARS-CoV-2 orf1ab Negative
== END 2019-10-10 14:30 | disposition home or self-care (01) ==
LOC: MADERS 10:33
DX: K52.9 Noninfective gastroenteritis and colitis, unspecified (principal); Z20.828 Contact with and (suspected) exposure to other viral communicable diseases
CPT/HCPCS: 80053; 81001; 83605; 83690; 85025; 99284; U0003; 87635; Q0162